=== PATIENT | male | born 1985 | race Caucasian/White ===

== ENCOUNTER 2021-12-03 05:12 | Emergency (ER) | payer SELFPAY ==
--- OUTSIDE RECORDS SUMMARY | 2021-12-03 05:15 | XMS REPORT | Continuity of Care Document ---
:1985 Author Organization [facility] t Address [address] [place] [address] Care Team Providers Name Role Phone Kristopher Morales NP Primary Care Physician Kristopher Morales NP Attending Clinician KRISTOPHER MORALES Attending Clinician Unavailable Problems Condition Condition Condition Status Onset Resolution Last Treating Co mments Source Name Details Category Date Date Treatment Clinician Date Alcohol Alcohol Disease Active [facility] withdrawal withdrawal 11-15 it y of 00:00: [place] 00 Medical Branch Allergies, Adverse Reactions, Alerts Allergy Allergy Status Severity Reaction(s) Onset Inactive Treating Comm ents Source Name Type Date Date Clinician NO KNOWN Drug Active Univers ALLERGIE Class ity [facility] [place] [facility] Social History Social Habit Start Date Stop Date Quantity Comments Source Sex Assigned At [address] 1985 [facility] 00:00:00 00:00:00 [facility] Branch Smoking Status Start Date Stop Date Source Unknown if ever smoked [facility] Medications Ordered Filled Start Stop Current Ordering Indication Dosage Frequency Signature Comments Components Source Medication Medication Date Date Medication? Clinician (SIG) Name Name hydrOXYzine Yes [id number] 10mg Take 1 [facility] 10 mg 4-04 tablet by ity of tablet 00:00: mouth [place] 00 every 12 Medical (twelve) Branch hours as needed for Anxiety. traZODone Yes [id number] 100mg Take 1 [facility] 100 mg 2-28 tablet by ity of tablet 00:00: mouth at [place] 00 bedtime. Medical Branch escitalopra Yes [id number] 10mg Take 1 Univers m oxalate 2-28 tablet by ity o f (LEXAPRO) 00:00: mouth [place] 10 mg 00 daily. Medical tablet Branch hydrOXYzine Yes [id number] 10mg Take 1 Univers 10 mg 2-28 tablet by ity of tablet 00:00: mouth [place] 00 every 12 Medical (twelve) Branch hours as needed for Anxiety. traZODone Yes [id number] 100mg Take 1 [facility] 100 mg 2-28 tablet by ity of tablet 00:00: mouth at [place] 00 bedtime. Medical Branch escitalopra Yes [id number] 10mg Take 1 Univers m oxalate 2-28 tablet by ity o f (LEXAPRO) 00:00: mouth [place] 10 mg 00 daily. Medical tablet Branch hydrOXYzine 2021- No [id number] 10mg Take 1 Univers 10 mg 2-28 04-02 tablet by ity of tablet 00:00: 00:00 mouth [place] 00 :00 every 12 Medical (twelve) Branch hours as needed for Anxiety. hydrOXYzine 2021- No [id number] 10mg Take 1 Univers 10 mg 2-28 02-28 tablet by ity of tablet 00:00: 00:00 mouth [place] 00 :00 every 6 Medical (six) Branch hours. ALPRAZolam Yes .25mg Take 0.25 U nivers 0.25 mg 2-23 mg by ity of tablet 00:00: mouth 2 [place] 00 (two) Medical times Branch daily as needed. ALPRAZolam 0 Yes .25mg Take 0.25 U nivers 0.25 mg 2-23 mg by ity of tablet 00:00: mouth 2 [place] 00 (two) Medical times Branch daily as needed. albuterol Yes [id number] 2{puff} Inhale 2 Univers 90 7-19 Puffs ity of mcg/actuati 00:00: every 4 [place] as on inhaler 00 (four) Medical hours as Branch needed for Wheezing or Shortness of Breath. albuterol Yes [id number] 2{puff} Inhale 2 Univers 90 7-19 Puffs ity of mcg/actuati 00:00: every 4 [place] as on inhaler 00 (four) Medical hours as Branch needed for Wheezing or Shortness of Breath. benzonatate 2021- No [id number] 100mg Take 1 Univers 100 mg 03-04 capsule by ity of capsule 00:00: 00:00 mouth 3 [place] 00 :00 (three) Medical times Branch daily as needed for Cough. methylPREDN 2021- No [id number] Take by Univers ISolone 12-19 mouth ity of (MEDROL, 00:00: 00:00 [place]STRU [place] 4 mg 00 :00 CTIONS. Medica l tablets follow Branch package directions naproxen 2021- No [id number] 375mg Take 1 Univers 375 mg 12-19 tablet by ity of tablet 00:00: 00:00 mouth 2 [place] 00 :00 (two) Medical times Branch daily with meals. traMADoL 50 2021- No [id number] 50mg Take 1 Uni vers mg tablet 12-19 tablet by ity of 00:00: 00:00 mouth [place] 00 :00 every 6 Medical (six) Branch hours as needed for Pain (scale 7-10). Indication s: acute pain methocarbam 2021- No [id number] 500mg Take 1 Univers oL 500 mg 12-19 tablet by ity of tablet 00:00: 00:00 mouth 4 [place] 00 :00 (four) Medical times Branch daily as needed for Pain (scale 4-6). multivitami Yes [id number] 1{tbl} Take 1 Univers n tablet 4-01 tablet by ity of 00:00: mouth [place] 00 daily. Medical Branch foLIC acid Yes [id number] 1mg Take 1 Univers 1 mg tablet 4-01 tablet by ity of 00:00: mouth [place] 00 daily. Medical Branch multivitami Yes [id number] 1{tbl} Take 1 Univers n tablet 4-01 tablet by ity of 00:00: mouth [place] 00 daily. Medical Branch foLIC acid Yes [id number] 1mg Take 1 Univers 1 mg tablet 4-01 tablet by ity of 00:00: mouth [place] 00 daily. Medical Branch chlordiazeP 2021- No [id number] Take 2 tab Univers OXIDE 25 mg 11-15 po TID for i ty of capsule 00:00: 00:00 2 days, [place] 00 :00 then 2 tab Medical po BID for Branch 2 days, then 1 tab BID daily for 2 days, then 1 tab daily for 2 days. thiamine 2021- No [id number] 100mg Take 1 Univers 100 mg 11-15 tablet by ity of tablet 00:00: 00:00 mouth [place] 00 :00 daily. Medical Branch ranitidine 2012-08- No 150mg Take 1 Tab Univers (ZANTAC) 010-14 by mouth 2 ity of 150 mg 00:00: 00:00 (two) [place] tablet 00 :00 times Medical daily. Branch Vital Signs Vital Name Observation Time Observation Value Comments Source Systolic blood 2021-10-14 19:33:00 132 mm[Hg] [facility] [place] Diastolic blood 2021-10-14 19:33:00 73 mm[Hg] [facility] Heart rate 2021-10-14 19:33:00 85 /min [facility] Body height 2021-10-14 19:33:00 180.3 cm [facility] Body weight 2021-10-14 19:33:00 127.325 kg [facility] BMI 2021-10-14 19:33:00 39.15 kg/m2 [facility] Oxygen saturation 2021-10-14 19:33:00 97 /min [facility] in Arterial blood Medical Br anch by Pulse oximetry Procedures This patient has no known procedures. Encounters Start End Encounter Admission Attending Care Care Encounter Source Date/Time Date/Time Type Type Clinicians Facility Department ID 2021-11-16 2021-11-16 Refill ZULMA Morales [id number] Univers 00:00:00 00:00:00 Kristopher HOWE [id number] [place] [id number] Serjio KELLEY [id number] Il dical NAL 044 Branch BUILDING 2021-10-14 2021-10-14 Office ZULMA Morales [id number] Univers 13:30:00 14:58:55 Visit Kristopher HOWE [id number] ity [facility] [id number] Serjio KELLEY [id number] [address] 2021-10-14 2021-10-14 Outpatient R KRISTOPHER MORALSE [facility] [id number] [facility] 13:30:00 14:58:55 KRISTOPHER MORALES ity [facility] Results This patient has no known results.
[2021-12-03] MEDS ORDERED: LORazepam 2 MG/ML VIAL ONE ×2 (05:27→06:13)
[2021-12-03] MEDS ORDERED: NA CHLORIDE 0.9% 500 ML ONE (06:13)
--- NOTE | 2021-12-03 07:55 | EDPHYS ---
Physician Documentation [facility] Name: Olvin Marley Age: 36 yrs Sex: Male : 1985 Arrival Date: 12/03/2021 Time: 05:13 Bed 17 Private MD: ED Physician Alex Dennis HPI: 12/03 08:26 This 36 yrs old Male presents to ER via Ambulatory with complaints of Chest Pain. kdr 08:26 The patient or guardian reports chest pain that is located primarily in the anterior kdr chest wall. The pain does not radiate. Associated signs and symptoms: Pertinent positives: diaphoresis, dizziness, nausea, palpitations, shortness of breath, Anxiety. The chest pain is described as aching, burning, a pressure, squeezing, stabbing. Duration: The patient or guardian reports a single episode, that is still ongoing, and unchanged. Modifying factors: The symptoms are alleviated by nothing. the symptoms are aggravated by nothing. Severity of pain: At its worst the pain was mild in the emergency department the pain is unchanged. The patient has not experienced similar symptoms in the past. The patient has not recently seen a physician. Historical: - Allergies: 05:25 No Known Allergies; al4 - Home Meds: 05:25 Lexapro 10 mg oral tab 1 tab once daily [Active]; hydroxyzine HCl 10 mg Oral tab three al4 times a day [Active]; - PMHx: 05:25 Anxiety; al4 - PSHx: 05:25 Appendectomy; al4 - Immunization history:: Adult Immunizations up to date, Client reports receiving the 2nd dose of the Covid vaccine, pfizer X3. - Social history:: Smoking status: Patient denies any tobacco usage or history of. Patient/guardian denies using alcohol. ROS: 08:26 Constitutional: Negative for fever, chills, and weight loss, Eyes: Negative for injury, kdr pain, redness, and discharge, ENT: Negative for injury, pain, and discharge, Neck: Negative for injury, pain, and swelling, Respiratory: Negative for shortness of breath, cough, wheezing, and pleuritic chest pain, Abdomen/GI: Negative for abdominal pain, nausea, vomiting, diarrhea, and constipation, Back: Negative for injury and pain, : Negative for injury, bleeding, discharge, and swelling, MS/Extremity: Negative for injury and deformity, Skin: Negative for injury, rash, and discoloration, Neuro: Negative for headache, weakness, numbness, tingling, and seizure activity. 08:26 Cardiovascular: Positive for chest pain, palpitations, Negative for edema, orthopnea, paroxysmal nocturnal dyspnea. Exam: 08:26 Constitutional: This is a well developed, well nourished patient who is awake, alert, kdr and in no acute distress. Head/Face: Normocephalic, atraumatic. Eyes: Pupils equal round and reactive to light, extra-ocular motions intact. Lids and lashes normal. Conjunctiva and sclera are non-icteric and not injected. Cornea within normal limits. Periorbital areas with no swelling, redness, or edema. Neck: Trachea midline, no thyromegaly or masses palpated, and no cervical lymphadenopathy. Supple, full range of motion without nuchal rigidity, or vertebral point tenderness. No Meningismus. Chest/axilla: Normal chest wall appearance and motion. Nontender with no deformity. No lesions are appreciated. Cardiovascular: Regular rate and rhythm with a normal S1 and S2. No gallops, murmurs, or rubs. Normal PMI, no JVD. No pulse deficits. Respiratory: Lungs have equal breath sounds bilaterally, clear to auscultation and percussion. No rales, rhonchi or wheezes noted. No increased work of breathing, no retractions or nasal flaring. Abdomen/GI: Soft, non-tender, with normal bowel sounds. No distension or tympany. No guarding or rebound. No evidence of tenderness throughout. Back: No spinal tenderness. No costovertebral tenderness. Full range of motion. Skin: Warm, dry with normal turgor. Normal color with no rashes, no lesions, and no evidence of cellulitis. MS/ Extremity: Pulses equal, no cyanosis. Neurovascular intact. Full, normal range of motion. Neuro: Awake and alert, GCS 15, oriented to person, place, time, and situation. Cranial nerves II-XII grossly intact. Motor strength 5/5 in all extremities. Sensory grossly intact. Cerebellar exam normal. Normal gait. 08:26 Psych: Behavior/mood is pleasant, cooperative, anxious, inappropriate for age, Affect is flat, Delusions/hallucinations are not present. Vital Signs: 05:21 Pulse 101; Resp 18 S; Temp 98.2(O); Pulse Ox 98% on R/A; Weight 127.01 kg (R); Height 5 al4 ft. 11 in. (180.34 cm) (R); Pain 8/10; 06:00 BP 119 / 71; Pulse 90; Resp 16; Pulse Ox 97% on R/A; Pain 0/10; al4 07:25 BP 114 / 72; Pulse 70; Resp 15; Pulse Ox 98% on R/A; vg1 08:15 BP 115 / 76; Pulse 70; Resp 14; Pulse Ox 98% on R/A; vg1 05:21 Body Mass Index 39.05 (127.01 kg, 180.34 cm) al4 MDM: 07:54 Patient medically screened. kdr 08:26 Data reviewed: vital signs, nurses notes, lab test result(s), radiologic studies. kdr Counseling: I had a detailed discussion with the patient and/or guardian regarding: the historical points, exam findings, and any diagnostic results supporting the discharge/admit diagnosis, lab results, radiology results, the need for outpatient follow up. 12/03 05:18 Order name: XRAY Chest (1 view) kdr 12/03 05:18 Order name: EKG; Complete Time: 05:18 kdr 12/03 05:18 Order name: Cardiac monitoring; Complete Time: 05:28 kdr 12/03 05:18 Order name: EKG - Nurse/Tech; Complete Time: 05:21 kdr 12/03 05:18 Order name: IV Saline Lock; Complete Time: 05:28 kdr 12/03 05:18 Order name: Labs collected and sent; Complete Time: 05:40 kdr 12/03 05:18 Order name: O2 Per Protocol; Complete Time: 05:21 kdr 12/03 05:18 Order name: O2 Sat Monitoring; Complete Time: 05:21 kdr Administered Medications: 05:27 Drug: Ativan (LORazepam) 1 mg Route: IVP; Site: right antecubital; al4 06:30 Follow up: Response: No adverse reaction al4 06:17 Drug: Ativan (LORazepam) 1 mg Route: IVP; Site: right antecubital; al4 07:00 Follow up: Response: No adverse reaction al4 06:17 Drug: NS 0.9% 500 ml Route: IV; Rate: bolus; Site: right antecubital; al4 07:00 Follow up: IV Status: Completed infusion; IV Intake: 500ml vg1 Disposition Summary: 12/03/21 07:54 Discharge Ordered Location: Home kdr Problem: new kdr Symptoms: have improved kdr Condition: Stable kdr Diagnosis - Accidental Overdose: Lexapro - nonlethal kdr - Anxiety disorder, unspecified kdr - Chest pain, unspecified kdr Followup: kdr - With: Private Physician - When: 2 - 3 days - Reason: If symptoms return, Further diagnostic work-up, Recheck today's complaints, Continuance of care, Re-evaluation by your physician Discharge Instructions: - Discharge Summary Sheet kdr - Panic Attack kdr - Nonspecific Chest Pain, Adult, [id number] kdr - Generalized Anxiety Disorder, Adult kdr - Accidental Drug Poisoning, Adult kdr Forms: - Medication Reconciliation Form kdr - Thank You Letter kdr Signatures: Dispatcher [employer] Alex Gray MD MD kdr Ledbetter, Alexis al4 Garcia, Victoria RN vg1
--- NOTE | 2021-12-03 07:55 | ER ---
Nurse's Notes [facility] Name: Olvin Marley Age: 36 yrs Sex: Male : 1985 Arrival Date: 12/03/2021 Time: 05:13 Bed 17 Private MD: Diagnosis: Accidental Overdose: Lexapro - nonlethal;Anxiety disorder, unspecified;Chest pain, unspecified Presentation: 12/03 05:21 Chief complaint: Patient states: woke up with chest pain and palpitations. pain al4 traveling down left arm. Coronavirus screen: Client denies travel out of the [place] in the last 14 days. At this time, the client does not indicate any symptoms associated with coronavirus-19. Ebola Screen: No symptoms or risks identified at this time. Initial Sepsis Screen: Does the patient meet any 2 criteria? No. Patient's initial sepsis screen is negative. Does the patient have a suspected source of infection? No. Patient's initial sepsis screen is negative. Risk Assessment: Do you want to hurt yourself or someone else? Patient reports no desire to harm self or others. Onset of symptoms was December 03, 2021. 05:21 Method Of Arrival: Ambulatory al4 05:21 Acuity: JAMEL 3 al4 Triage Assessment: 05:25 General: Appears in no apparent distress. uncomfortable, Behavior is cooperative, al4 anxious. Pain: Complains of pain in chest Pain radiates to left arm. EENT: No deficits noted. No signs and/or symptoms were reported regarding the EENT system. Neuro: No deficits noted. Level of Consciousness is awake, alert, obeys commands, Oriented to person, place, time, situation. Cardiovascular: No deficits noted. Reports chest pain, diaphoresis, lightheadedness, nausea, palpitations, Capillary refill < 3 seconds Clubbing of nail beds is absent JVD is absent Patient's skin is warm and dry. Respiratory: No deficits noted. Airway is patent Trachea midline Respiratory effort is even, unlabored, Respiratory pattern is regular, symmetrical. GI: No deficits noted. No signs and/or symptoms were reported involving the gastrointestinal system. Abdomen is round non-distended. : No deficits noted. No signs and/or symptoms were reported regarding the genitourinary system. Derm: No deficits noted. No signs and/or symptoms reported regarding the dermatologic system. Skin is intact, is healthy with good turgor, Skin is diaphoretic, Skin is pink, warm \T\ dry. Musculoskeletal: No deficits noted. No signs and/or symptoms reported regarding the musculoskeletal system. Historical: - Allergies: 05:25 No Known Allergies; al4 - Home Meds: 05:25 Lexapro 10 mg oral tab 1 tab once daily [Active]; hydroxyzine HCl 10 mg Oral tab three al4 times a day [Active]; - PMHx: 05:25 Anxiety; al4 - PSHx: 05:25 Appendectomy; al4 - Immunization history:: Adult Immunizations up to date, Client reports receiving the 2nd dose of the Covid vaccine, pfizer X3. - Social history:: Smoking status: Patient denies any tobacco usage or history of. Patient/guardian denies using alcohol. Screenin:29 Abuse screen: Denies threats or abuse. Denies injuries from another. Nutritional al4 screening: No deficits noted. Tuberculosis screening: No symptoms or risk factors identified. Fall Risk None identified. Assessment: 05:30 Reassessment: see triage assessment. al4 06:17 Reassessment: Patient and/or family updated on plan of care and expected duration. Pain al4 level reassessed. Patient is alert, oriented x 3, equal unlabored respirations, skin warm/dry/pink. Patient denies pain at this time. 06:39 Reassessment: . Called poison control and spoke to Mel. al4 Recommendation: if QTC measurement is greater than 500 then replace magnesium and potassium. If EKG is normal with no other symptoms then patient is okay to be medically cleared. 07:24 General: Appears in no apparent distress. comfortable, Behavior is calm, cooperative. vg1 Pain: Complains of pain in chest Pain currently is 2 out of 10 on a pain scale. Neuro: Level of Consciousness is awake, alert, obeys commands, Oriented to person, place, time, situation. Cardiovascular: Patient's skin is warm and dry. Respiratory: Airway is patent Respiratory effort is even, unlabored. GI: No signs and/or symptoms were reported involving the gastrointestinal system. : No signs and/or symptoms were reported regarding the genitourinary system. EENT: No signs and/or symptoms were reported regarding the EENT system. Derm: Skin is intact, is healthy with good turgor. Musculoskeletal: Circulation, motion, and sensation intact. 07:25 Reassessment: Patient appears in no apparent distress at this time. No changes from vg1 previously documented assessment. Patient and/or family updated on plan of care and expected duration. Pain level reassessed. Patient is alert, oriented x 3, equal unlabored respirations, skin warm/dry/pink. waiting for provider to speak with patient. Vital Signs: 05:21 Pulse 101; Resp 18 S; Temp 98.2(O); Pulse Ox 98% on R/A; Weight 127.01 kg (R); Height 5 al4 ft. 11 in. (180.34 cm) (R); Pain 8/10; 06:00 BP 119 / 71; Pulse 90; Resp 16; Pulse Ox 97% on R/A; Pain 0/10; al4 07:25 BP 114 / 72; Pulse 70; Resp 15; Pulse Ox 98% on R/A; vg1 08:15 BP 115 / 76; Pulse 70; Resp 14; Pulse Ox 98% on R/A; vg1 05:21 Body Mass Index 39.05 (127.01 kg, 180.34 cm) al4 ED Course: 05:13 Patient arrived in ED. kz 05:17 Alex Dennis MD is Attending Physician. kdr 05:25 Ed Buitrago is Primary Nurse. al4 05:25 Triage completed. al4 05:25 Arm band placed on left wrist. al4 05:29 Patient has correct armband on for positive identification. Bed in low position. Call al4 light in reach. Side rails up X2. residential monitor on. Pulse ox on. NIBP on. 05:29 Patient maintains SpO2 saturation greater than 95% on room air. al4 05:35 XRAY Chest (1 view) In Process Unspecified. EDMS 08:46 No provider procedures requiring assistance completed. IV discontinued, intact, ss bleeding controlled, No redness/swelling at site. Pressure dressing applied. Administered Medications: 05:27 Drug: Ativan (LORazepam) 1 mg Route: IVP; Site: right antecubital; al4 06:30 Follow up: Response: No adverse reaction al4 06:17 Drug: Ativan (LORazepam) 1 mg Route: IVP; Site: right antecubital; al4 07:00 Follow up: Response: No adverse reaction al4 06:17 Drug: NS 0.9% 500 ml Route: IV; Rate: bolus; Site: right antecubital; al4 07:00 Follow up: IV Status: Completed infusion; IV Intake: 500ml vg1 Intake: 07:00 IV: 500ml; Total: 500ml. vg1 Outcome: 07:54 Discharge ordered by . kdr 08:46 Discharged to home ambulatory. ss 08:46 Condition: good 08:46 Discharge instructions given to patient, Instructed on discharge instructions, follow up and referral plans. Demonstrated understanding of instructions, follow-up care. 08:47 Patient left the ED. ss Signatures: Dispatcher [employer] EDAlex Moeller MD MD kdr Felicitas Doyle RN RN ss Liliane Hall RN RN vg1 Ed Buitrago alClementine Goodwin
--- NOTE | 2021-12-03 08:59 | EKG ---
Test Date: 2021-12-03 Test Time: 05:18:19 Fan Blade Aligner: TAMAR MEASUREMENT RESULTS: Intervals: Rate: 103 TX: 178 QRSD: 80 QT: 344 QTc: 450 [place]: P: 42 TX: 178 QRS: 54 T: 23 INTERPRETIVE STATEMENTS: Sinus tachycardia Otherwise normal ECG No previous ECG available for comparison Electronically Signed On 12-03-21 08:58:10 CDT by Rainer Steele
[2021-12-03 13:24] VITALS: TEMP 98.2
[2021-12-03 13:26] VITALS: O2SAT 98
[2021-12-03 13:27] VITALS: BP 115/76
--- NOTE | 2021-12-03 13:39 | RAD REPORT ---
EXAM DESCRIPTION: Chest x-ray Single View CLINICAL HISTORY: 6 years Male, CHEST PAIN COMPARISON: None FINDINGS: No focal lung consolidation. No pleural effusion. No pneumothorax. Cardiac and mediastinal silhouette is unremarkable. No acute osseous abnormality. Soft tissues are unremarkable. IMPRESSION: No acute findings. No focal lung consolidation. Electronically signed by: Vic Millan DO 12/03/2021 5:42 AM CDT Due to temporary technical issues with the PACS/Fluency reporting system, reports are being signed by the in house radiologists without review as a courtesy to insure prompt reporting. The interpreting radiologist is fully responsible for the content of the report.
== END 2021-12-03 08:47 | disposition home or self-care (01) ==
LOC: ER 05:12
DX: R07.9 Chest pain, unspecified (principal); T43.221A Poisoning by selective serotonin reuptake inhibitors, accidental (unintentional), initial encounter; F41.9 Anxiety disorder, unspecified; R00.2 Palpitations
CPT/HCPCS: 71045; 93005; 96361; 96374; 99285; J7040